=== PATIENT | male | born 2000 | race Caucasian/White ===

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

== ENCOUNTER 2019-11-28 16:25 | Emergency (ER) | payer BC, SELFPAY ==
[2019-11-28 16:27] VITALS: BP 142/87; PULSE 104; RESP 16; TEMP 36.7; O2SAT 100; BMI 21.5
--- NOTE | 2019-11-28 17:02 | ED.VIS.GEN ---
History of Present Illness Chief Complaint: General Illness Informant: Patient Onset: Today Timing: Continuous Narrative: Patient is a 19-year-old male with history of hereditary spherocytosis presenting with concern for jaundice. Patient states he woke up this morning and felt that his eyes looked a little more yellow than normal. His grandmother agreed. Patient is very anxious about this so he came to the emergency room to be checked out. He does not feel that his skin is any different color. He denies any change in color of his feces or urine. He denies any associated miguel ángel pain, nausea or vomiting. He notes he has had some intermittent left flank pain over the past 2 weeks. Patient is not sure that is from his snapping scapula or his spleen. Patient does not currently follow with cassandra consultant. He states he had a bad episode of the severe cytosis when he was 2 at [facility] but not had any issues since then. He denies any recent illnesses. He states he has been feeling fine otherwise. He notes he did not sleep well last night and is been up since 2 AM. He notes his eyes do get bloodshot a lot when he is tired. Patient denies any new foods. Denies any other complaints at this time. Past Medical History - Allergies and Home Meds Allergies/Adverse Reactions: Allergies No Known Allergies Allergy (Verified 11/28/19 16:26) Primary Care Physician: Anthony Dunlap MD [STAFF PHYSICIAN] - Past Medical History: - - Hereditary spherocytosis Surgical History: no surgical history, noncontributory Lives: With Family Smoking Status: Never smoker Review of Systems General: Denies: Chills, Fever, Malaise, Sweats Eyes: Reports: - - Yellowing of the eyes. Denies: Visual changes - bilaterally, Diplopia ENT: Denies: Rhinorrhea, Sore throat Cardiovascular: Denies: Chest pain, Palpitations Respiratory: Denies: Dyspnea, Cough, Dyspnea on exertion Gastrointestinal: Denies: Abdominal pain, Nausea, Vomiting, Diarrhea, Melena, Hematochezia Genitourinary: Denies: Dysuria, Hematuria, Frequency Musculoskeletal: Denies: Back pain, Extremity Pain Skin: Denies: Rash, Wounds Neurological: Denies: Headache, Weakness, Numbness Physical Exam Vital Signs/Narrative: Vital Signs Temp Pulse Resp BP Pulse Ox 11/28/19 16:27 98.0 F 104 H 16 142/87 H 100 Inital Vital Signs reviewed: Yes General: Well nourished, Well developed, No Acute Distress Head: Normocephalic, Atraumatic Eyes: Perrl, EOMI. Negative for: Pale conjunctiva, Scleral icterus ENT: Moist mucous membranes, No rhinorrhea, TM's clear Neck: Supple, Nontender Cardiovascular: Regular rate, Regular rhythm, No murmurs Respiratory: No distress, CTA bilaterally, Chest nontender Abdomen: Soft, Nontender, Nondistended, Normal bowel sounds, No masses. Negative for: Hepatomegaly, Splenomegaly Back: Nontender, Normal Inspection Extremities: Nontender, No edema Skin: Normal color, No rash. Negative for: Jaundice Neurological: Alert, Oriented x3, Cranial nerves II-XII grossly intact, Normal Strength, Normal Sensation Psychological: Normal affect, Normal Mood Diagnostic/Tx/Re-eval Laboratory Data 11/28/19 11/28/19 11/28/19 16:58 17:03 17:03 WBC 3.7 L RBC 4.80 Hgb 15.2 Hct 45.3 MCV 94.4 H MCH 31.7 MCHC 33.6 RDW Std Deviation 41.9 RDW Coeff of Mami 12.1 Plt Count 228 MPV 10.5 Immature Gran % (Auto) 0.000 Neut % (Auto) 50.4 Lymph % (Auto) 29.9 [place]field % (Auto) 15.5 H Eos % (Auto) 2.9 Baso % (Auto) 1.3 H Absolute Neuts (auto) 1.9 L Absolute Lymphs (auto) 1.12 Nucleated RBC % 0 Sodium Potassium Chloride Carbon Dioxide Anion Gap BUN Creatinine Estim Creat Clear Calc Est GFR (MDRD) Af Amer Est GFR (MDRD) Non-Af BUN/Creatinine Ratio Glucose Calcium Total Bilirubin 3.40 H Direct Bilirubin 0.42 H AST 13 L ALT 19 Alkaline Phosphatase 55 Total Protein 7.6 Albumin 4.6 Globulin 3.0 Urine Color Yellow Urine Clarity Sl. Cloudy Urine pH 7.0 Ur Specific [place] 1.015 Urine Protein Negative Urine Glucose (UA) Normal Urine Ketones Negative Urine Occult Blood Negative Urine Nitrite Negative Urine Bilirubin Negative Urine Urobilinogen 1 H Ur Leukocyte Esterase Negative Urine RBC 0 SEEN Urine WBC 0-5 SEEN Ur Squamous Epith Cells 0 SEEN Amorphous Sediment 1+ Urine Bacteria RARE Urine Mucus 0 SEEN Monoscreen 11/28/19 11/28/19 17:03 17:03 WBC RBC Hgb Hct MCV MCH MCHC RDW Std Deviation RDW Coeff of Mami Plt Count MPV Immature Gran % (Auto) Neut % (Auto) Lymph % (Auto) [place] % (Auto) Eos % (Auto) Baso % (Auto) Absolute Neuts (auto) Absolute Lymphs (auto) Nucleated RBC % Sodium 142 Potassium 3.7 Chloride 110 H Carbon Dioxide 28.0 Anion Gap 4 L BUN 12 Creatinine 1.08 Estim Creat Clear Calc 105.00 Est GFR (MDRD) Af Amer 112 Est GFR (MDRD) Non-Af 92 BUN/Creatinine Ratio 11.1 Glucose 76 Calcium 9.4 Total Bilirubin Direct Bilirubin AST ALT Alkaline Phosphatase Total Protein Albumin Globulin Urine Color Urine Clarity Urine pH Ur Specific [place] Urine Protein Urine Glucose (UA) Urine Ketones Urine Occult Blood Urine Nitrite Urine Bilirubin Urine Urobilinogen Ur Leukocyte Esterase Urine RBC Urine WBC Ur Squamous Epith Cells Amorphous Sediment Urine Bacteria Urine Mucus Monoscreen Negative - Medical Decision Making Patient is evaluated for concerns of jaundice. Patient is very mildly jaundiced. He he does have an elevated indirect bilirubinemia. He does not have associated anemia normal platelets. Monospot is negative. Discussed with Dr. Yap, heme-onc on-call, who recommends starting the patient on 1 mg of folic acid daily and have the patient increase his fluid intake. He will follow-up with Dr. Haddad. Patient is counseled on signs and symptoms requiring return to the emergency room. Patient verbalizes agreement and understand this plan. Patient discharged home in stable and improved condition. ED Disposition - Plan for ED Patient: Disposition: Home or Assisted Living Diagnosis: Total bilirubin, elevated Instructions: Indirect Bilirubin Prescriptions: Folic Acid 1 mg PO DAILY #30 tab Prescription Printed Referrals: Anthony Dunlap MD [STAFF PHYSICIAN] - Melissa Haddad MD [STAFF PHYSICIAN] - Additional Instructions: Drink plenty of fluids.
[2019-11-28 17:11] LABS: Mucous, Urine 0 SEEN /hpf (<or=2+); Red Blood Cells-Urine 0 SEEN /hpf (0-5); Squamous Epithelial Cells - UA 0 SEEN /hpf (0-5)
[2019-11-28 17:13] LABS: Color, Urine Yellow (Yellow); Glucose, Dipstick Normal (Normal); Ketone-Dipstick Negative (Negative); Leukocyte Esterase-Dipstick Negative /ul (Negative); Nitrite-Dipstick Negative (Negative); Occult Blood-Urine Negative /ul (Negative); Protein-Dipstick Negative (Negative); Specific Gravity, Urine 1.015 (1.002-1.030); Urine Bilirubin Dipstick Negative (Negative); Urine Clarity Sl. Cloudy (Clear); Urine Urobilinogen 1 mg/dl (Normal)
[2019-11-28 17:14] LABS: Absolute Lymphocyte Count 1.12 X10^3/uL (0.83-4.51); Absolute Neutrophil Count 1.9 X10^3/uL (2.0-7.7); Basophil# 0.05 X10^3/uL; Basophil% 1.3 % (0-1); Eosinophil# 0.11 X10^3/uL; Eosinophils% 2.9 % (0-5); Hematocrit 45.3 % (40-54); Hemoglobin 15.2 g/dL (13.0-16.5); Lymphocyte # 1.12 X10^3/ul (4.0); Lymphocyte % 29.9 % (19-41); Mean Corp Hgb Conc 33.6 g/dL (32-36); Mean Corpuscular Hgb 31.7 pg (27.0-32.0); Mean Corpuscular Volume 94.4 fL (80-94); Mean Platelet Vol. 10.5 fl (6.2-12.0); Monocyte# 0.58 X10^3/uL; Monocyte% 15.5 % (0-10); NRBC Flagged by Analyzer 0 % (0-5); Neutrophil # 1.88 X10^3/uL (2.7-7.7); Neutrophil % 50.4 % (47-70); Platelet Count 228 K/mm3 (150-450); RBC Distribution Width CV 12.1 % (11.6-14.6); RBC Distribution Width SD 41.9 fl (35.1-43.9); White Blood Count 3.7 K/mm3 (4.4-11.0)
[2019-11-28 17:20] LABS: Bacteria RARE /hpf (None Seen); White Blood Cells 0-5 SEEN /hpf (0-5)
[2019-11-28 17:21] LABS: Amorphous Sediment 1+
[2019-11-28 17:28] LABS: Anion Gap 4 (5-15); BUN 12 mg/dL (7-18); BUN/Creat Ratio 11.1 RATIO (10-20); Calcium,Total 9.4 mg/dL (8.5-10.1); Chloride 110 mmol/L (98-107); Creatinine, Serum 1.08 mg/dL (0.70-1.30); EST Glomerular Filtration Rate 92 mL/min (>60); Est Glom Filt Rate - Afr Amer 112 mL/min (>60); Glucose 76 mg/dL (74-106); Potassium 3.7 mmol/L (3.5-5.1); Sodium Level 142 mmol/L (136-145)
[2019-11-28 17:30] LABS: AST(SGOT) 13 U/L (15-37); Alanine Aminotransfer ALT/SGPT 19 U/L (16-61); Albumin, Serum 4.6 g/dL (3.2-5.0); Alkaline Phosphatase 55 U/L (45-117); Bilirubin, Direct 0.42 mg/dL (0.00-0.30); Protein, Total 7.6 g/dL (6.4-8.2)
[2019-11-28 18:03] LABS: Internal QC Validated? YES +Cl - CLEAR BKGD
[2019-11-28 18:05] LABS: Monotest Negative (Negative)
[2019-11-28 18:45] VITALS: PULSE 65; RESP 16; O2SAT 99
--- NOTE | 2019-11-28 18:46 | ED.RN ---
REVIEWED D/C INSTRUCTIONS, FOLLOW UP CARE, PRESCRIPTION, AND S/S THAT WOULD WARRANT A RETURN TO THE ED WITH PT. PT VERBALIZED AN UNDERSTANDING AND DENIES FURTHER QUESTIONS FOR THIS RN. PT SKIN P/W/D, RESP EVEN AND UNLABORED, PT A&O X 3, NO DISTRESS NOTED. PT AMBULATED OUT OF ED, GAIT STEADY.
== END 2019-11-28 18:47 | disposition home or self-care (01) ==
PROVIDERS: Emergency Provider Emergency Medicine; PCP Internal Medicine
DX: R17 Unspecified jaundice (principal)
CPT/HCPCS: 80048; 80076; 81001; 85025; 86308; 99283; A4216

== ENCOUNTER 2020-01-24 23:51 | Emergency (ER) | payer OTHER, BC, SELFPAY ==
[2020-01-24 23:51] VITALS: BP 135/86; PULSE 66; RESP 18; TEMP 36.6; O2SAT 97
--- NOTE | 2020-01-25 00:02 | EKG12_ITS ---
Test Reason : SUBSTANCE ABUSE Blood Pressure : / mmHG Vent. Rate : 095 BPM Atrial Rate : 095 BPM P-R Int : 152 ms QRS Dur : 088 ms QT Int : 334 ms P-R-T Axes : 073 028 064 degrees QTc Int : 419 ms Normal sinus rhythm Normal ECG Confirmed by YUKO MEADE, SOLA ([id number]), publication editor MARGE BARROS ([id number]) on 01/26/2020 11:14:09 AM Referred By: ERIC Confirmed By:SOLA HUNTLEY MD
--- NOTE | 2020-01-25 00:02 | ED.DCSUM_ITS ---
- ER Visit Summary Date of Service: 01/25/20 Chief Complaint: Heart rate after smoking marijuana History of Present Illness: The patient is a 19 M past medical history of spherocytosis. Patient is currently on no medications. Is never had any surgeries. Was smoking marijuana with a friend today about an hour ago. Said he had anxious, nauseated started having tremors and his heart rate became accelerated. He smoked marijuana before and said this is never happened. He was concerned the marijuana was laced with some other chemical or drug. He denies any other medical problems. Recently has been feeling well. Physical Examination: Well-appearing 19-year-old male no acute distress vital signs are stable and afebrile. Currently his heart rates on vital signs are as listed at 66. H EENT exam unremarkable. Neck nontender no lymphadenopathy. No thyromegaly. No masses. Lungs clear to auscultation bilaterally. Heart regular rhythm rate on my exam is around 95. No murmur. Abdomen soft and nontender. Normal bowel sounds no peritoneal signs. Patient is moving all 4 extremities. Calves are nontender without edema or cords. Neurologically is awake and alert with no focal motor deficits. Test Results: EKG shows Emergency Department Course and Treatment: Patient with accelerated heart rate, anxiety and nausea post smoking marijuana. His exam is unremarkable. Will obtain an EKG. Repeat exam patient is doing well at 1:08 AM. He is starting to calm down. His exam otherwise is unchanged. Treatment Plan: Stop using drugs. Follow-up with not improving. Disposition: dc Impression: Acute anxiety and tachycardia after using drugs This note was generated with [employer] dictation software. It may contain incorrect words, spelling, and punctuation that were not noted in review of the chart prior to signing ED Disposition - Plan for ED Patient: Disposition: Home or Assisted Living Instructions: ED Marijuana Abuse Referrals: Wali Moses MD [Primary Care Provider] - 1 Week if not improving Additional Instructions: Follow-up with your doctor if you not improving. I would strongly encourage you not to use any drugs whether legal or not. These can be laced with all types of substances.
--- NOTE | 2020-01-25 01:10 | ED.DEP ---
ED Disposition - Plan for ED Patient: Disposition: Home or Assisted Living Instructions: ED Marijuana Abuse Referrals: Wali Moses MD [Primary Care Provider] - 1 Week if not improving Additional Instructions: Follow-up with your doctor if you not improving. I would strongly encourage you not to use any drugs whether legal or not. These can be laced with all types of substances.
[2020-01-25 01:20] VITALS: PULSE 98; RESP 16; O2SAT 97
== END 2020-01-25 01:22 | disposition home or self-care (01) ==
PROVIDERS: Emergency Provider Emergency Medicine; PCP Internal Medicine
DX: F41.9 Anxiety disorder, unspecified (principal); R00.0 Tachycardia, unspecified; F12.90 Cannabis use, unspecified, uncomplicated; D58.0 Hereditary spherocytosis; Z72.0 Tobacco use
CPT/HCPCS: 93005; 99282

== ENCOUNTER → 2020-06-14 17:30 | Outpatient (CLI) | payer OTHER, SELFPAY | PROVIDERS: PCP Internal Medicine; Referring Provider Physician Assistant Surgical; Visit Provider Physician Assistant Surgical | DX: Z20.828 Contact with and (suspected) exposure to other viral communicable diseases (principal) | CPT/HCPCS: 87635; C9803; U0003 ==

== ENCOUNTER → 2020-07-11 20:30 | Outpatient (CLI) | payer OTHER, BC, SELFPAY ==
[2020-07-11 14:24] VITALS: BMI 21.7
== END ==
PROVIDERS: PCP Internal Medicine; Referring Provider Physician Assistant; Visit Provider Physician Assistant
DX: Z20.828 Contact with and (suspected) exposure to other viral communicable diseases (principal)
CPT/HCPCS: 87635; U0003

== ENCOUNTER 2020-07-20 21:29 | Emergency (ER) | payer OTHER, BC, SELFPAY ==
[2020-07-11 14:24] VITALS: BMI 21.7
[2020-07-20 21:30] VITALS: BP 136/84; PULSE 74; RESP 18; TEMP 36.8; O2SAT 100; BMI 22.2
--- NOTE | 2020-07-20 22:55 | ED.DCSUM_ITS ---
History of Present Illness Chief Complaint: General Illness Informant: Patient Narrative: 20-year-old male presenting with symptoms he attributes to Covid?19. His girlfriend just tested positive for Covid. He has been sick for 2 days. He has myalgias, low-grade fever subjectively, no loss of taste or smell. He denies a cough or shortness of breath. He does not have chest pain. He does complain of pain behind his knees that goes from the left to the right side of his body periodically. He states he has no history of DVT/PE. He does not have lower extremity swelling Past Medical History - Allergies and Home Meds Allergies/Adverse Reactions: Allergies No Known Allergies Allergy (Verified 07/11/20 14:24) Primary Care Physician: Wali Moses MD [Primary Care Provider] - Past Medical History: - - Spherocytosis Surgical History: no surgical history, noncontributory Lives: Alone Smoking Status: Current every day smoker Alcohol: None Drugs: None Review of Systems General: Reports: Chills, Fever. Denies: Malaise, Sweats Eyes: Reports: - - No loss of taste or smell. Denies: Visual changes - bilaterally, Diplopia Cardiovascular: Denies: Chest pain, Palpitations Respiratory: Denies: Dyspnea, Cough, Dyspnea on exertion Genitourinary: Denies: Dysuria, Hematuria, Frequency Musculoskeletal: Reports: Myalgias, Extremity Pain - Pain behind left knee. Denies: Arthralgias, Neck pain Skin: Denies: Rash, Abscess Neurological: Denies: Headache, Weakness Physical Exam Vital Signs/Narrative: Vital Signs Temp Pulse Resp BP Pulse Ox 07/20/20 21:30 98.3 F 74 18 136/84 H 100 Inital Vital Signs reviewed: Yes General: Well nourished, Well developed, No Acute Distress Head: Normocephalic, Atraumatic Eyes: Perrl, EOMI ENT: Moist mucous membranes. Negative for: Nasal congestion Cardiovascular: Regular rate, Regular rhythm Respiratory: No distress, CTA bilaterally Extremities: No edema, - - Tenderness to palpation posterior left knee. There is no swelling, edema. There is no bony tenderness. There is no calf tenderness.. Negative for: Edema Skin: Normal color, No rash Neurological: Alert, Oriented x3 Psychological: Normal affect, Normal Mood Diagnostic/Tx/Re-eval - Medical Decision Making 20-year-old male presenting with left posterior knee pain. He states this has been going on since he has been sick for the last 2 days. He states it does alternate from the right knee to the left knee at times. He has no history of DVT/PE. His vital signs are normal. On physical exam his lungs are clear and his heart is regular rate and rhythm. Patient was counseled that typically in this situation we would order an outpatient follow-up DVT study however given that he likely has Covid since his girlfriend was tested positive I did child care counselor him that if he has worsening pain or worsening symptoms due to Covid that he should come back to the ER. He is even counseled that he can come back to the ER tomorrow for an DVT study. Impression: 1. Viral syndrome 2. Exposure to Covid?19 3. Posterior left knee pain ED Disposition - Plan for ED Patient: Disposition: Home or Assisted Living Instructions: Coronavirus Disease 2019 (COVID-19): Overview, Coronavirus Disease 2019 (COVID-19): Caring for Yourself or Others, Preventing the Spread of Infection Understanding Isolation Procedures Referrals: Wali Moses MD [Primary Care Provider] -
== END 2020-07-20 23:18 | disposition home or self-care (01) ==
LOC: ED 23:12
PROVIDERS: Emergency Provider Student in an Organized Health Care Education/Training Program; PCP Internal Medicine
DX: U07.1 COVID-19 (principal); B34.9 Viral infection, unspecified; Z20.828 Contact with and (suspected) exposure to other viral communicable diseases; M25.562 Pain in left knee; F17.200 Nicotine dependence, unspecified, uncomplicated
CPT/HCPCS: 87635; 99282; U0003

== ENCOUNTER → 2023-03-19 | Outpatient (CLI) | payer OTHER, SELFPAY | END | disposition home or self-care (01) | PROVIDERS: PCP Internal Medicine; Referring Provider Physician Assistant; Visit Provider Physician Assistant | DX: K12.2 Cellulitis and abscess of mouth (principal) | CPT/HCPCS: 87070; 87077 ==

== ENCOUNTER 2024-09-16 10:12 | Emergency (ER) | payer BC, SELFPAY ==
[2024-09-16 10:13] VITALS: BP 155/88; PULSE 115; RESP 22; TEMP 36.4; O2SAT 100; BMI 27.6
[2024-09-16 10:55] LABS: Absolute Lymphocyte Count 0.83 X10^3/uL (0.83-4.51); Absolute Neutrophil Count 3.8 X10^3/uL (2.0-7.7); Basophil# 0.07 X10^3/uL; Basophil% 1.3 % (0-1); Eosinophil# 0.06 X10^3/uL; Eosinophils% 1.1 % (0-5); Hematocrit 49.5 % (40-54); Hemoglobin 16.6 g/dL (13.0-16.5); Lymphocyte # 0.83 X10^3/ul (0.83-4.51); Mean Corp Hgb Conc 33.5 g/dL (32-36); Mean Corpuscular Hgb 31.9 pg (27.0-32.0); Mean Corpuscular Volume 95.2 fL (80-94); Mean Platelet Vol. 10.5 fl (6.2-12.0); Monocyte# 0.75 X10^3/uL; Monocyte% 13.5 % (0-10); NRBC Flagged by Analyzer 0 % (0-5); Neutrophil # 3.83 X10^3/uL (2.7-7.7); Neutrophil % 68.9 % (47-70); Platelet Count 264 K/mm3 (150-450); RBC Distribution Width CV 12.1 % (11.6-14.6); RBC Distribution Width SD 42.1 fl (35.1-43.9); White Blood Count 5.6 K/mm3 (4.4-11.0)
[2024-09-16 11:07] LABS: Amphetamine Urine NEGATIVE (<1000 ng/mL); Barbiturate Urine VISTA NEGATIVE (< 200 ng/mL); Benzodiazepine Urine VISTA NEGATIVE (< 200 ng/mL); Cocaine Urine VISTA NEGATIVE (< 300 ng/mL); Ecstacy Urine VISTA NEGATIVE (< 500 ng/mL); Methadone Urine VISTA NEGATIVE (< 300 ng/mL); PCP Urine VISTA NEGATIVE (< 25 ng/mL); THC Urine VISTA NEGATIVE (< 50 ng/mL); Vista UDS pH Range 6
[2024-09-16 11:10] LABS: ALB/GLOB Ratio 1.1 RATIO (0.9-2.4); AST(SGOT) 15 U/L (15-37); Alanine Aminotransfer ALT/SGPT 34 U/L (16-61); Albumin, Serum 4.5 g/dL (3.2-5.0); Alkaline Phosphatase 68 U/L (45-117); Anion Gap 8 (5-15); BUN 7 mg/dL (7-18); BUN/Creat Ratio 6.4 RATIO (10-20); Calcium,Total 9.7 mg/dL (8.5-10.1); Chloride 106 mmol/L (98-107); EST Glomerular Filtration Rate 87 mL/min (>60); Est Glom Filt Rate - Afr Amer 105 mL/min (>60); Glucose 90 mg/dL (74-106); Potassium 3.4 mmol/L (3.5-5.1); Protein, Total 8.5 g/dL (6.4-8.2); Sodium Level 138 mmol/L (136-145)
[2024-09-16 11:24] LABS: Alcohol, Blood (Medical)-Serum < 3.0 mg/dL
--- NOTE | 2024-09-16 12:37 | CM.ED ---
Social Work Psychiatric Assessment Reason for consult: Mental Health Informant(s): ?patient , medical record Chief Complaint: ?Patient presented to the ED due to suicidal ideations with plan and intent. Patient stated that he had taken a gun out of his glove box in his jeep and placed the gun in his mouth with the intent of committing suicide.? Patient was able to stop self and called his mother for help.?? Patient states that he recently broke up with his rn medical inpatient services fianc? which also led to him losing his home, his vehicle and his dogs.? Patient states that over the last year he has felt his symptoms increase.? He states he has had stressors such as relationship concerns with inlaws and financial problems that have increased his depression and anxiety. ??Patient states over the last week, his symptoms have been much worse, he has been unable to sleep more that 3-4 hours a night and reports he is not able to eat.? Patient reports having suicidal ideations over last week and ?that in the last several days have been ?persistent.? Patient states the thoughts have been constant and difficult to control.? Marital/Social History/Sexual Orientation/Gender Identity: Single, male, heterosexual Living Situation: ?Was living with ficatherine? until break up this week, moved back in with parents. Support/Resources: ?mom, stepdad, friend History: None Education and Employment History: high school graduate, recently stated job at [employer] Mental Health Treatment/History: Saw a psychiatrist when he was 14.? Has been diagnosed with anxiety and depression.?? States that over the years several medications had been trialed.? Had previously been prescribed ?Zoloft, Ativan, and klonopin.? ??Patient states he never found a medication that worked well, has not taken any meds for 4-5 years.? Triggers/Stressors to mental health: Stress of breakup with fianc?, loss of house, car, and dogs.? Previous stress of job loss, financial burdens, relationship issues with inlaws.? Coping Skills: exercise, walking in [place], playing video games History of Abuse (physical/sexual/verbal/emotional): denies Substance Abuse Current/Historical: one to two beers daily, denies drug use. Risk to Self/Others: ? Suicidal (thought/plan/intent/attempt): Patient had suicidal ideation with intent and plan.? Had a loaded gun in vehicle that he put in his mouth.? Was able to stop self and called his family for help. ? Access to Lethal Means: Yes ? Homicidal (thought/plan/intent/attempt): no ? History of Violence (self/others/objects): no Mental Status Exam: ??? Orientation: oriented x 3 ??? Memory: ?intact Appearance/General Behavior: ?clean, appropriate for situation, directable Mood/Affect: ?depressed, flat, tearful Communication Pattern: ?responds to questions Thought Process: ?appropriate General Intellectual Functioning: ???average Judgment: fair Insight: fair [place] SSRS SUICIDAL IDEATION Ask questions 1 and 2.? If both are negative, proceed to ?Suicidal Behavior? section. If the answer question 2 is yes, ask questions 3, 4, 5.? If the answer to question 1 and/or 2 is ?yes?, complete ?Intensity of Ideation? section below. 1. Wish to be ? Subject endorses thoughts about a wish to be or not alive anymore, or wish to fall asleep and not wake up. Have you wished you were or wished you could go to sleep and not wake up? Lifetime: Time He/She [place] Most Suicidal: ?No Past 1 month: Yes Please Describe if yes: ?suicidal ideations over last few days 2. Non-Specific Active Suicidal Thoughts General, non-specific thoughts of wanting to end one?s life/commit suicide (e.g., ?I?ve thought about killing myself?) without thoughts of ways to kills oneself/associated methods, intent, or plan during the assessment period.? Have you actually had any thoughts of killing yourself? Lifetime: Time He/She [place] Most Suicidal: ?No Past 1 month: Yes Please Describe if yes: Thoughts of killing self today 3. Active Suicidal Ideation with Any Methods (Not Plan) without Intent to Act Subject endorses thoughts of suicide and has thought of at least one method during the assessment period.? This is different than a specific plan with time, place, or method details worked out (e.g., thought of method to kills self but not a specific plan).? Includes person who would say ?I thought about thanking an overdose, but I never made a specific plan as to when, where or how. I would actually do it, and I would never go through with it.? Have you been thinking about how you might do this? Lifetime: Time He/She [place] Most Suicidal: ?No Past 1 month:? Yes Please Describe if yes:? Thoughts today of shooting self 4. Active Suicidal Ideation with Some Intent to Act, without Specific Plan Active suicidal thoughts of kills oneself fand subject reports having some intent to act on such thoughts, as opposed to ?I have the thoughts but I definitely will not do anything about them.? Have you had these thoughts and had some intention of acting on them? Lifetime: Time He/She [place] Most Suicidal: No Past 1 month: Yes Please Describe if yes: had intent today 5. Active Suicidal Ideation with Specific Plan and Intent Thoughts of kills oneself with details of plan fully or partially worked out and subject has some intent to care it out. Have you started to work out or worked out the details of how to kill yourself? Do you intend to carry out this plan? Lifetime: Time He/She [place] Most Suicidal: no Past 1 month: ???yes Please Describe if yes: had intent today INTENSITY OF IDEATION The following feature should be rated with respect to the most sever type of ideation (i.e., 1-5 from above, with 1 being the least severe and 5 being the most severe). Ask about time he/she/they were feeling the most suicidal.? Lifetime - Most Severe Ideation: Type # (1-5): Description: Recent - Most Severe Ideation: Type # (1-5): Description: Frequency How many times have you had these thoughts? Lifetime: Recent, Past 1 month:? (4) Daily or almost daily??? - over last few days Duration When you have the thoughts how long do they last? Lifetime: Recent, Past 1 month :? (5) More than 8 hours/persistent or continuous Controllability Could/can you stop thinking about killing yourself or wanting to if you want to? Lifetime: ? Recent, Past 1 month: (5) Unable to control thoughts?? Deterrents Are there things - anyone or anything (e.g., family, episcopal, pain of ) - that stopped you from wanting to or acting on thoughts of committing suicide? Lifetime:? Recent:?(3) Uncertain that deterrents stopped you? Reasons for Ideation What sort of reasons did you have for thinking about wanting to or killing yourself? Was it to end the pain or stop the way you were feeling (in other words you couldn?t go on living with this pain or how you were feeling) or was it to get attention, revenge or a reaction from others? Or both? Lifetime: Recent: (5) Completely to end or stop the pain (you couldn?t go on living with the pain or? how you were feeling)?? SUICIDAL BEHAVIOR Actual Attempt: A potentially self-injurious act committed with at least some wish to , as a result of act.? Behavior was in part thought of as method to kill oneself.? Intent does not have to be 100%.? If there is any intent/desire to associated with the act, then it can be considered an actual suicide attempt.? There does not have to be any injury of harm, just the potential for injury or harm.? If person pulls trigger while gun is in mouth, but gun is broken so no injury results, this is considered an attempt.? Inferring intent:? Even if an individual denies intent/wish to , it may be inferred clinically from the behavior or circumstances.? For example, a highly lethal act that is clearly not an accident so no other intent but suicide can be inferred (e.g. gunshot to head, jumping from window of a high floor/story).? Also, if someone denies intent to , but they thought that what they did could be lethal, intent may be inferred.? Have you made a suicide attempt? Have you done anything to harm yourself? Have you done anything dangerous where you could have ? What did you do? Did you as a way to end your life? Did you want to (even a little) when you ? Were you trying to end your life when you ? Or did you think it was possible you could have from ? Or did you do it purely for other reasons/without ANY intention of killing yourself like to relieve stress, feel better, get sympathy, or get something else to happen)? (Self -Injurious Behavior without suicidal intent) Lifetime:No Past 3 months: No If yes, describe: Total # of Attempts in His/Her Lifetime: Total # of attempts in Past 3 months: Has person engaged in Non-Suicidal Sefl-Injurious Behavior? Lifetime: No Past 3 months: No Interrupted Attempt:? When the person is interrupted (by an outside circumstance) from starting the potentially self-injurious act (if not for that, actual attempt would have occurred).? Overdose: Person has pills in hand but is stopped from ingesting. Once they ingest any pills, this becomes an attempt rather than an interrupted attempt. Shooting: Person has gun pointed toward self, gun is taken away by someone else, or is somehow prevented from pulling trigger. Once they pull the trigger, even if the gun fails to fire, it is an attempt. Jumping: Person is poised to jump, is grabbed and taken down from ledge.? Hanging: Person has noose around neck but has not yet started to hang self -is stopped from doing so.? Has there been a time when you started to do something to end your life but someone or something stopped you before you did anything? Lifetime: No Past 3 months: No If yes, describe: ? Total # of interrupted attempts in His/Her Lifetime: Total # of interrupted attempts in Past 3 months: Aborted or Self-Interrupted Attempt:? When person begins to take steps toward making a suicide attempt, but stops themselves before they have actually engaged in any self-destructive behavior. Examples are like interrupted attempts, except that the individual stops him/herself, instead of being stopped by something else. Has there been a time when you started to do something to try to end your life, but you stopped yourself before you did anything? Lifetime: No Past 3 months: Yes If yes, describe: ??had gun in mouth with intent to shoot self Total # of aborted or self-interrupted attempts in His/Her Lifetime: 1 Total # of aborted or self-interrupted attempts in Past 3 months: 1 Preparatory Acts or Behavior:? Acts or preparation towards imminently making a suicide attempt. This can include anything beyond a verbalization or thought, such as assembling a specific method (e.g., buying pills, purchasing a gun) or preparing for one?s by suicide (e.g., giving things away, writing a suicide note). Have you taken any steps towards making a suicide attempt or preparing to kill yourself (such as collecting pills, getting a gun, giving valuables away or writing a suicide note)? Lifetime: No Past 3 months: No If yes, describe: ? Total # of preparatory acts in His/Her Lifetime: Total # of preparatory acts in Past 3 months: Lethality/Medical Damage:??? 0.? No physical damage or very minor physical damage (e.g., surface scratches). 1.? Minor physical damage (e.g., lethargic speech; first-degree guillen; mild bleeding; sprains). 2.? Moderate physical damage; medical attention needed (e.g., conscious but sleepy, somewhat responsive; second-degree guillen; bleeding of major vessel). 3.? Moderately severe physical damage; medical hospitalization and likely intensive care required (e.g., comatose with reflexes intact; third-degree guillen less than 20% of body; extensive blood loss but can recover; major fractures). 4.? Severe physical damage; medical hospitalization with intensive care required (e.g., comatose without reflexes; third-degree guillen over 20% of body; extensive blood loss with unstable vital signs; major damage to a vital area). 5.? Most Recent attempt Date:0 Code: Most Lethal Attempt Date: Code: Initial/First Attempt Date: Code: Potential Lethality: ?Only Answer if Actual Lethality=0 Likely lethality of actual attempt if no medical damage (the following examples, while having no actual medical damage, had potential for very serious lethality: put gun in mouth and pulled the trigger but gun fails to fire so no medical damage; laying on train tracks with oncoming train but pulled away before run over). 0 = Behavior not likely to result in injury 1 = Behavior likely to result in injury but not likely to cause 2 = Behavior likely to result in despite available medical care Most Recent Attempt Code:2 Most Lethal Attempt Code: Initial/First Attempt Code: Assessment Summary: Due to patients increase in depression, lack of ability to sleep, decreased appetite, compounding feelings of loss, and suicidal ideation with intent and plan, inpatient hospitalization is recommended to decrease depressive symptoms and suicidal ideation.? Physician consulted and in agreement with same.? Plan: Inpatient psychiatric hospitalization pending acceptance Madeline Marcano, COLLABORATIVE PHYSICIAN, MARKET RESEARCH ANALYST
--- NOTE | 2024-09-16 12:38 | EDS_ITS ---
HPI HPI - Psych History of Present Illness Chief Complaint: Suicidal Informant: patient Narrative Narrative: Patient is a 24-year-old male with history of hereditary spherocytosis and regular alcohol use presenting with depression and suicidal ideation. Patient reports a remote history of anxiety which he states is better with exercise. He states that he recently ended a 6-year relationship and lost his dog, house, car and dogs. He states he is in worsening depression over the past week with difficulty sleeping, difficulty eating. Today he was thinking about killing himself by a shoot himself in the head. He reportedly put a gun in his mouth. He then texted his mom and came to the ER for further psychiatric care. He has been living with his mother. He denies any physical complaints at this time. Notes he had about 4-1/2 pints of beer last night. He states he drinks most nights for the past year but if he does not drink he does not get any withdrawal symptoms or shakes. He states he normally drinks about a beer a day. Denies any illicit drug use. [facility] Medical History Thoracic myofascial strain Shoulder pain Spherocytosis Home Medications ?Medication ?Instructions ?Recorded ?Last Taken ?Type NK 09/16/24 Unknown History Allergy/AdvReac Type Severity Reaction Status Date / Time No Known Allergies Allergy Verified 09/16/24 11:04 Family History no significant family his Social History household members: family Smoking Status: Former smoker alcohol intake: current alcohol intake frequency: a few times a week ROS ROS ED Constitutional Constitutional ED: Denies chills or fever(s) Respiratory/Chest Respiratory/Chest: Denies cough or dyspnea Gastrointestinal Gastrointestinal: Denies nausea or vomiting Integumentary Denies rash Neurologic Neurologic: Denies weakness Psychiatric Psychiatric: Reports depression, suicidal ideation and suicidal thoughts Hematologic/Lymphatic Hematologic/Lymphatic: Denies easy bleeding EXAM Physical Exam Const Vital Signs: 09/16/24 10:13 09/16/24 15:31 Temperature 97.5 F L 98 F Temperature Source Temporal Pulse Rate 115 H 88 Respiratory Rate 22 H 16 Blood Pressure 155/88 H 138/76 H Blood Pressure Mean 110 96 Pulse Ox 100 98 Oxygen Delivery Method Room Air Positive well nourished and well developed General Appearance ED: well developed and NAD HEENT Reports moist mucous membranes Neck supple Resp normal respiratory effort and clear to auscultation bilaterally Cardio no murmurs Rate: tachycardic Rhythm: regular rhythm GI non-tender and non-distended Extremity normal to inspection General Extremety ED: Negative for edema or tenderness General Extremity: Negative for edema Neuro oriented x3 Sensorium / Orientation: alert Motor Exam: Negative for general weakness Psych cooperative, affect normal, denies hallucinations and denies homicidal ideation Appearance: grossly normal and well kempt Attitude: calm Activity / Motor Behavior: appropriate eye contact Speech: normal speech Mood & Affect: depressed and tearful Thought Process: normal thought process Thought Content: suicidality Attention / Concentration: attention grossly intact Memory / Cognition: memory grossly intact Insight: insight good Judgement: limited Skin General Skin Exam: Negative for jaundice MDM MDM MDM Narrative Medical decision making narrative: Patient is evaluated for depression with suicidal thoughts. He put a gun in his mouth earlier today. Will be medically cleared and I do think would benefit from emergent psychiatric care. Patient is medically cleared. Will be evaluated by social work for placement. Patient remains calm and cooperative in the emergency room. Patient is excepted at [facility]. Lab Data Labs: Laboratory Results - last 24 hr 09/16/24 10:32 WBC 5.6 RBC 5.20 Hgb 16.6 H Hct 49.5 MCV 95.2 H MCH 31.9 MCHC 33.5 RDW Std Deviation 42.1 RDW Coeff of Mami 12.1 Plt Count 264 MPV 10.5 Immature Gran % (Auto) 0.200 Neut % (Auto) 68.9 Lymph % (Auto) 15.0 L Hunt % (Auto) 13.5 H Eos % (Auto) 1.1 Baso % (Auto) 1.3 H Absolute Neuts (auto) 3.8 Absolute Lymphs (auto) 0.83 Nucleated RBC % 0 Sodium 138 Potassium 3.4 L Chloride 106 Carbon Dioxide 24.0 Anion Gap 8 BUN 7 Creatinine 1.10 Estim Creat Clear Calc 106.00 Est GFR (MDRD) Af Amer 105 Est GFR (MDRD) Non-Af 87 BUN/Creatinine Ratio 6.4 L Glucose 90 Calcium 9.7 Total Bilirubin 1.30 H AST 15 ALT 34 Alkaline Phosphatase 68 Total Protein 8.5 H Albumin 4.5 Globulin 4.0 Albumin/Globulin Ratio 1.1 Urine Opiates Screen NEGATIVE Urine Methadone Screen NEGATIVE Ur Barbiturates Screen NEGATIVE Ur Phencyclidine Scrn NEGATIVE Ur Amphetamines Screen NEGATIVE MDMA (Ecstasy) Screen NEGATIVE U Benzodiazepines Scrn NEGATIVE Urine Cocaine Screen NEGATIVE U Cannabinoids Screen NEGATIVE Ur Drug Screen Comment Ethyl Alcohol < 3.0 Discharge Plan Triage Chief Complaint: Suicidal ED Provider: Grace Dallas Dx/Rx/DC Orders Clinical Impression: Depression with suicidal ideation Prescriptions: No Action NK Primary Care Provider: Wali Moses Referrals: Wali Moses MD [Primary Care Provider] - Print Language: Beninese Disposition Disposition: Psychiatric Hospital or Unit Discharge Location: [facility]
--- NOTE | 2024-09-16 13:09 | CM.ED ---
Social Work SW contacted [facility]. Spoke with Sabiha who confirmed they do have open male beds. Referral sent. Plan: Inpatient psychiatric placement pending acceptance. Madeline Marcano, PASTEURISER OPERATOR, PRINT SUPPORT SPECIALIST
--- NOTE | 2024-09-16 13:41 | ED.RN ---
ACCEPTED AT [facility] AT 1341
--- NOTE | 2024-09-16 13:52 | CM.ED ---
Social Work Patient has been accepted to [facility]. Will be going to [facility]. Admitting is [facility]. N2N = [phone]. Patient and patients mother aware of acceptance. [place] slip faxed. Madeline Marcano, INVENTORY ACCOUNTANT, LAND ACQUISITION SPECIALIST
[2024-09-16 15:31] VITALS: BP 138/76; PULSE 88; RESP 16; TEMP 36.6; O2SAT 98
--- NOTE | 2024-09-16 15:56 | ED.RN ---
This RN attempted to call report and got a voicemail. This RN called back and got an individual, who stated that she would walk my number over to them and that they would call me back.
--- NOTE | 2024-09-16 16:12 | ED.RN ---
This RN called report to Ernst at [facility].
== END 2024-09-16 18:08 ==
PROVIDERS: Emergency Provider Emergency Medicine; PCP Internal Medicine; Visit Provider Emergency Medicine
DX: F32.A Depression, unspecified (principal); R45.851 Suicidal ideations; Z87.891 Personal history of nicotine dependence
CPT/HCPCS: 36415; 80053; 80307; 82077; 85025; 99284